=== PATIENT | female | born 1945 | race Caucasian/White ===

== ENCOUNTER 2016-11-17 12:25 | Emergency (ER) | payer MEDICARE, BC ==
[2016-11-17] MEDS ORDERED: Bacitracin Oint 1 GM U/D Packet TOP ONE (13:22)
[2016-11-17 13:26] VITALS: BP 185/95
--- NOTE | 2016-11-17 14:02 | EDM.PDOC ---
[id number] 4d R INDEX FINGER LACERATION Time Seen by Provider: 11/17/16 13:30 Source of Information: Reports: Patient History Limitations: Reports: No Limitations - History of Present Illness INITIAL COMMENTS - FREE TEXT/NARRATIVE: 71-year-old female cut her right index finger while cutting a watermelon. She has a flap laceration on the pulp of the index finger, a total of 2.5 cm. Onset: Sudden Duration: Hour(s): (Within the last hour) Location: Reports: Upper Extremity, Right - Related Data Allergies Allergy/AdvReac Type Severity Reaction Status Date / Time erythromycin base AdvReac Other Verified 11/17/16 13:20 Home Meds: Home Meds Atenolol [Atenolol] 1 tab PO DAILY 03/26/15 [History] Diazepam [Diazepam] 1 tab PO ASDIRECTED 03/26/15 [History] Omeprazole [Omeprazole] 1 tab PO DAILY 03/26/15 [History] PARoxetine HCl [Paroxetine HCl] 1 tab PO DAILY 03/26/15 [History] Sulindac [Clinoril] 1 tab PO BID 03/26/15 [History] metFORMIN [Glucophage] 1 tab PO ACBREAKFAST 03/26/15 [History] Escitalopram [Lexapro] 20 mg PO DAILY 11/17/16 [History] metFORMIN [Glucophage] 1,000 mg PO BEDTIME 11/17/16 [History] Past Medical History Cardiovascular History: Reports: Hypertension 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: Musculoskeletal History: Reports: Arthritis Psychiatric History: Reports: Anxiety Endocrine/Metabolic History: Reports: Diabetes, Type II Oncologic (Cancer) History: Reports: Other (See Below) Other Oncologic History: endometrial ca - Past Surgical History GI Surgical History: Reports: Other (See Below) Female Surgical History: Reports: Hysterectomy Social & Family History - Tobacco Use Smoking Status *Q: Never Smoker Second Hand Smoke Exposure: No - Caffeine Use Caffeine Use: Reports: Coffee - Recreational Drug Use Recreational Drug Use: No ED ROS GENERAL - Review of Systems Review Of Systems: See Below Constitutional: Denies: Fever Cardiovascular: Denies: Chest Pain GI/Abdominal: Denies: Abdominal Pain, Nausea, Vomiting Psychiatric: Reports: Anxiety ED EXAM, SKIN/RASH Exam: See Below Exam Limited By: No Limitations General Appearance: Alert, No Apparent Distress Respiratory/Chest: No Respiratory Distress Extremities: Other (exam is otherwise limited to the right hand. Patient has a 2.5 cm flap laceration to the pulp.) Course - Vital Signs Last Recorded V/S: Last Vital Signs Temp 97.8 F 11/17/16 13:24 Pulse 65 11/17/16 13:24 Resp 23 H 11/17/16 13:24 BP 185/95 H 11/17/16 13:24 Pulse Ox 96 11/17/16 13:24 - Orders/Labs/Meds Orders: Active Orders 24 hr Category Date Time Status Vaccines to be Administered [RC] PER UNIT ROUTINE Care 11/17/16 14:04 Active Meds: Medications Discontinued Medications Generic Name Dose Route Start Last Admin Trade Name Freq PRN Reason Stop Dose Admin Bacitracin 1 dose 11/17/16 13:22 11/17/16 14:19 Bacitracin Oint 1 Gm TOP 11/17/16 13:23 1 dose ONETIME ONE Administration Diphtheria/Tetanus/Acell Pertussis 0.5 ml 11/17/16 14:04 11/17/16 14:16 Adacel IM 11/17/16 14:05 0.5 ml .ONCE ONE Administration Lidocaine HCl 5 ml 11/17/16 13:22 11/17/16 14:19 Xylocaine-Mpf 1% INJECT 11/17/16 13:23 5 ml ONETIME ONE Administration - Re-Assessments/Exams Free Text/Narrative Re-Assessment/Exam: 11/17/16 14:00 The wound is cleaned with saline, infiltrated with 1% lidocaine and 7 5-0 Ethilon sutures were used to close the wound. Topical bacitracin and a Band-Aid was applied, the patient was given a finger splint for protection. She she was also given a TDap. Departure - Departure Time of Disposition: 14:52 Disposition: Home, Self-Care 01 Condition: Good Clinical Impression: Finger laceration Qualifiers: Encounter type: initial encounter Finger: index finger Damage to nail status: without damage Foreign body presence: without foreign body Laterality: right Qualified Code(s): S61.210A - Laceration without foreign body of right index finger without damage to nail, initial encounter - Discharge Information Instructions: Laceration Care, Adult, [id number] Referrals: Karen Lombardo MD [Primary Care Provider] - Forms: ED Department Discharge Care Plan Goals: Keep the wound covered and clean while healing. Sutures can be removed in 8 days. Recheck sooner if concerns of infection or not healing satisfactorily. - My Orders Last 24 Hours: My Active Orders 11/17/16 14:04 Vaccines to be Administered [RC] PER UNIT ROUTINE - Assessment/Plan Last 24 Hours: My Active Orders 11/17/16 14:04 Vaccines to be Administered [RC] PER UNIT ROUTINE
[2016-11-17] MEDS ORDERED: Diphtheria,Pertussis(Acell),Tetanus Vaccine 0.5 ML SDV IM ONE (14:04)
== END 2016-11-17 14:53 | disposition home or self-care (01) ==
LOC: JP.ED 12:25
DX: S61.210A Laceration without foreign body of right index finger without damage to nail, initial encounter (principal); I10 Essential (primary) hypertension; M19.90 Unspecified osteoarthritis, unspecified site; F41.9 Anxiety disorder, unspecified; E11.9 Type 2 diabetes mellitus without complications; Z23 Encounter for immunization; Z90.710 Acquired absence of both cervix and uterus; Z85.42 Personal history of malignant neoplasm of other parts of uterus; Z79.84 Long term (current) use of oral hypoglycemic drugs; Z79.899 Other long term (current) drug therapy; Z88.1 Allergy status to other antibiotic agents; W45.8XXA Other foreign body or object entering through skin, initial encounter
CPT/HCPCS: 12001; 90471; 90715; 99283-25; 99284-25

== ENCOUNTER 2017-02-23 09:22 | Emergency (ER) | payer MEDICARE, BC ==
[2017-02-23] MEDS ORDERED: LORazepam 2 MG/ML MDV IVPUSH ONE ×2 (10:51→12:57)
--- NOTE | 2017-02-23 10:55 | EDM.PDOC ---
ED HPI GENERAL MEDICAL PROBLEM - General Chief Complaint: Back Pain or Injury Stated Complaint: MEDICAL VIA [facility] Time Seen by Provider: 02/23/17 10:40 Source of Information: Reports: Patient, Family, Old Records, RN Notes Reviewed History Limitations: Reports: No Limitations - History of Present Illness INITIAL COMMENTS - FREE TEXT/NARRATIVE: 72-year-old female presents emergency department today via EMS services following a fall at home, she states she went to sit on a chair missed the chair fell ended up hitting a table where she landed on the right flank area. She states the pain was very intense difficulty breathing with this after the event she had a syncopal event she did not collapse as she was already on the ground. She is complaining of right flank pain no other symptoms at this time she is quite anxious Treatments JANITORIAL ASSISTANT: Reports: IV/IO, Other (see below) Other Treatments JANITORIAL ASSISTANT: Zofran 8 mg po Fentenyl 100mcg Right Flank Pain Score (Numeric/FACES): 3 - Related Data Allergies Allergy/AdvReac Type Severity Reaction Status Date / Time erythromycin base AdvReac Other Verified 02/23/17 09:41 Home Meds: Home Meds Atenolol [Atenolol] 1 tab PO DAILY 03/26/15 [History] Diazepam [Diazepam] 1 tab PO ASDIRECTED 03/26/15 [History] Omeprazole [Omeprazole] 1 tab PO DAILY 03/26/15 [History] Sulindac [Clinoril] 1 tab PO BID 03/26/15 [History] metFORMIN [Glucophage] 1 tab PO ACBREAKFAST 03/26/15 [History] Escitalopram [Lexapro] 20 mg PO DAILY 11/17/16 [History] metFORMIN [Glucophage] 1,000 mg PO BEDTIME 11/17/16 [History] Cholecalciferol (Vitamin D3) [Vitamin D3] 2,000 unit PO DAILY 02/23/17 [History] Escitalopram Oxalate [Lexapro] 20 mg PO DAILY 02/23/17 [History] Past Medical History HEENT History: Reports: Impaired Vision Cardiovascular History: Reports: Hypertension Gastrointestinal History: Reports: Chronic Constipation 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: , 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 Musculoskeletal History: Reports: Arthritis, Osteoarthritis Psychiatric History: Reports: Anxiety Endocrine/Metabolic History: Reports: Diabetes, Type II Oncologic (Cancer) History: Reports: Other (See Below) Other Oncologic History: endometrial ca - Infectious Disease History Infectious Disease History: Reports: Chicken Pox, Measles, Mumps - Past Surgical History HEENT Surgical History: Reports: Cataract Surgery GI Surgical History: Reports: Other (See Below) Other GI Surgeries/Procedures: abdomenal abcess 2010 Female Surgical History: Reports: Hysterectomy Social & Family History - Tobacco Use Smoking Status *Q: Never Smoker Second Hand Smoke Exposure: No - Caffeine Use Caffeine Use: Reports: Coffee - Recreational Drug Use Recreational Drug Use: No ED ROS GENERAL - Review of Systems Review Of Systems: See Below Constitutional: Reports: No Symptoms HEENT: Reports: No Symptoms Respiratory: Reports: Shortness of Breath Cardiovascular: Reports: Chest Pain GI/Abdominal: Reports: No Symptoms : Reports: No Symptoms Musculoskeletal: Reports: Back Pain Skin: Reports: No Symptoms Neurological: Reports: No Symptoms ED EXAM, UPPER BACK/NECK PAIN - Physical Exam Exam: See Below Exam Limited By: No Limitations General Appearance: Alert, Mild Distress Cardiovascular/Respiratory: Regular Rate, Rhythm, No M/R/G, Normal Breath Sounds , No Respiratory Distress GI/Abdominal: Soft, Tender (Tender right area flank over T10 region) Back Exam: Normal Inspection, Decreased Range of Motion. No: CVA Tenderness (R) , CVA Tenderness (L), Paraspinal Tenderness, Vertebral Tenderness Course - Vital Signs Last Recorded V/S: Last Vital Signs Temp 97.5 F 02/23/17 09:40 Pulse 75 02/23/17 13:51 Resp 16 02/23/17 13:51 BP 116/54 L 02/23/17 13:51 Pulse Ox 90 L 02/23/17 13:51 - Orders/Labs/Meds Orders: Active Orders 24 hr Category Date Time Status Cardiac Monitoring [RC] .As Directed Care 02/23/17 10:50 Active EKG Documentation Completion [RC] ASDIRECTED Care 02/23/17 09:47 Active Iopamidol [Isovue-370 (76%)] Med 02/23/17 13:00 Active 100 ml IV . DIRECTED Sodium Chloride 0.9% [Normal Saline] 100 ml Med 02/23/17 13:00 Active IV ASDIRECTED Sodium Chloride 0.9% [Saline Flush] Med 02/23/17 13:00 Active 10 ml FLUSH ONETIME EKG 12 Lead [EK] Stat Ther 02/23/17 09:47 Ordered Medication Orders Sodium Chloride (Normal Saline) 100 mls @ 4 mls/sec IV ASDIRECTED BORIS Stop: 02/23/17 23:00 Last Admin: 02/23/17 13:34 Dose: 4 mls/sec Iopamidol (Isovue-370 (76%)) 100 ml IV . DIRECTED BORIS Stop: 02/23/17 23:00 Last Admin: 02/23/17 13:34 Dose: 100 ml Sodium Chloride (Saline Flush) 10 ml FLUSH ONETIME BORIS Stop: 02/23/17 23:00 Labs: Laboratory Tests 02/23/17 02/23/17 02/23/17 Range/Units 11:00 11:00 11:00 WBC 9.1 (4.5-11.0) K/uL RBC 5.00 (3.30-5.50) M/uL Hgb 14.1 (12.0-15.0) g/dL Hct 43.3 (36.0-48.0) % MCV 87 (80-98) fL MCH 28 (27-31) pg MCHC 33 (32-36) % Plt Count 175 (150-400) K/uL Neut % (Auto) 71 H (36-66) % Lymph % (Auto) 11 L (24-44) % [place] % (Auto) 12 H (2-6) % Eos % (Auto) 5 H (2-4) % Baso % (Auto) 0 (0-1) % D-Dimer, Quantitative 1400 H (0.0-400.0) ng/mL Sodium 140 (140-148) mmol/L Potassium 4.5 (3.6-5.2) mmol/L Chloride 104 (100-108) mmol/L Carbon Dioxide 28 (21-32) mmol/L Anion Gap 8.0 (5.0-14.0) mmol/L BUN 30 H (7-18) mg/dL Creatinine 0.6 (0.6-1.0) mg/dL Est Cr Clr Drug Dosing 77.01 mL/min Estimated GFR (MDRD) > 60 (>60) Glucose 146 H (74-106) mg/dL Calcium 9.1 (8.5-10.1) mg/dL Total Bilirubin 0.5 (0.2-1.0) mg/dL AST 9 L (15-37) U/L ALT 15 (12-78) U/L Alkaline Phosphatase 61 (46-116) U/L CK-MB (CK-2) 0.5 (0-3.6) mg/mL Troponin I < 0.017 (0.000-0.056) ng/mL Total Protein 6.8 (6.4-8.2) g/dL Albumin 3.5 (3.4-5.0) g/dL Globulin 3.3 (2.3-3.5) g/dL Albumin/Globulin Ratio 1.1 L (1.2-2.2) Urine Color Urine Appearance Urine pH (4.5-8.0) Ur Specific [place] (1.008-1.030) Urine Protein (NEGATIVE) mg/dL Urine Glucose (UA) (NEGATIVE) mg/dL Urine Ketones (NEGATIVE) mg/dL Urine Occult Blood (NEGATIVE) Urine Nitrite (NEGATIVE) Urine Bilirubin (NEGATIVE) Urine Urobilinogen (NORMAL) mg/dL Ur Leukocyte Esterase (NEGATIVE) Urine RBC (0-5) Urine WBC (0-5) Ur Epithelial Cells Amorphous Sediment Urine Bacteria Urine Mucus 02/23/17 Range/Units 12:56 WBC (4.5-11.0) K/uL RBC (3.30-5.50) M/uL Hgb (12.0-15.0) g/dL Hct (36.0-48.0) % MCV (80-98) fL MCH (27-31) pg MCHC (32-36) % Plt Count (150-400) K/uL Neut % (Auto) (36-66) % Lymph % (Auto) (24-44) % [place] % (Auto) (2-6) % Eos % (Auto) (2-4) % Baso % (Auto) (0-1) % D-Dimer, Quantitative (0.0-400.0) ng/mL Sodium (140-148) mmol/L Potassium (3.6-5.2) mmol/L Chloride (100-108) mmol/L Carbon Dioxide (21-32) mmol/L Anion Gap (5.0-14.0) mmol/L BUN (7-18) mg/dL Creatinine (0.6-1.0) mg/dL Est Cr Clr Drug Dosing mL/min Estimated GFR (MDRD) (>60) Glucose (74-106) mg/dL Calcium (8.5-10.1) mg/dL Total Bilirubin (0.2-1.0) mg/dL AST (15-37) U/L ALT (12-78) U/L Alkaline Phosphatase (46-116) U/L CK-MB (CK-2) (0-3.6) mg/mL Troponin I (0.000-0.056) ng/mL Total Protein (6.4-8.2) g/dL Albumin (3.4-5.0) g/dL Globulin (2.3-3.5) g/dL Albumin/Globulin Ratio (1.2-2.2) Urine Color Yellow Urine Appearance Cloudy Urine pH 5.0 (4.5-8.0) Ur Specific [place] 1.020 (1.008-1.030) Urine Protein Negative (NEGATIVE) mg/dL Urine Glucose (UA) Normal (NEGATIVE) mg/dL Urine Ketones Negative (NEGATIVE) mg/dL Urine Occult Blood Large (NEGATIVE) Urine Nitrite Negative (NEGATIVE) Urine Bilirubin Negative (NEGATIVE) Urine Urobilinogen Normal (NORMAL) mg/dL Ur Leukocyte Esterase Negative (NEGATIVE) Urine RBC 50-75 H (0-5) Urine WBC 0-5 (0-5) Ur Epithelial Cells Few Amorphous Sediment Not seen Urine Bacteria Not seen Urine Mucus Moderate Meds: Medications Generic Name Dose Route Start Last Admin Trade Name Freq PRN Reason Stop Dose Admin Sodium Chloride 100 mls @ 4 mls/sec 02/23/17 13:00 02/23/17 13:34 Normal Saline IV 02/23/17 23:00 4 mls/sec ASDIRECTED BORIS Administration Iopamidol 100 ml 02/23/17 13:00 02/23/17 13:34 Isovue-370 (76%) IV 02/23/17 23:00 100 ml . DIRECTED BORIS Administration Sodium Chloride 10 ml 02/23/17 13:00 Saline Flush FLUSH 02/23/17 23:00 ONETIME BORIS Discontinued Medications Generic Name Dose Route Start Last Admin Trade Name Freq PRN Reason Stop Dose Admin Ketorolac Tromethamine 30 mg 02/23/17 13:05 02/23/17 13:15 Toradol IVPUSH 02/23/17 13:06 30 mg ONETIME ONE Administration Lorazepam 1 mg 02/23/17 10:51 02/23/17 11:04 Ativan IVPUSH 02/23/17 10:52 1 mg ONETIME ONE Administration Lorazepam 1 mg 02/23/17 12:57 02/23/17 13:09 Ativan IVPUSH 02/23/17 12:58 1 mg ONETIME ONE Administration Departure - Departure Time of Disposition: 14:22 Disposition: Home, Self-Care 01 Condition: Good Clinical Impression: Rib pain on right side Syncope Qualifiers: Syncope type: vasovagal syncope Qualified Code(s): R55 - Syncope and collapse - Discharge Information Referrals: Karen Lombardo MD [Primary Care Provider] - Forms: ED Department Discharge Additional Instructions: Use hydrocodone as needed for pain control, Please followup with your primary care provider in 3-5 days if not better, please call return to the emergency department with worsening of symptoms. - My Orders Last 24 Hours: My Active Orders 02/23/17 09:47 EKG Documentation Completion [RC] ASDIRECTED EKG 12 Lead [EK] Stat 02/23/17 10:50 Cardiac Monitoring [RC] .As Directed 02/23/17 13:00 Iopamidol [Isovue-370 (76%)] 100 ml IV . DIRECTED Sodium Chloride 0.9% [Normal Saline] 100 ml IV ASDIRECTED Sodium Chloride 0.9% [Saline Flush] 10 ml FLUSH ONETIME - Assessment/Plan Last 24 Hours: My Active Orders 02/23/17 09:47 EKG Documentation Completion [RC] ASDIRECTED EKG 12 Lead [EK] Stat 02/23/17 10:50 Cardiac Monitoring [RC] .As Directed 02/23/17 13:00 Iopamidol [Isovue-370 (76%)] 100 ml IV . DIRECTED Sodium Chloride 0.9% [Normal Saline] 100 ml IV ASDIRECTED Sodium Chloride 0.9% [Saline Flush] 10 ml FLUSH ONETIME Plan: Assessment Acuity = acute Site and laterality = syncopal event with right-sided rib pain Etiology = secondary to fall at home Manifestations = none Location of injury = Home Lab values = WBC unremarkable d-dimer elevated at 1400 by unclear etiology troponin was negative CK-MB negative CMP negative urinalysis reveals 50-75 rbc' s consistent hematuria, chest x-ray shows no acute process CT scan of the chest does show a 9 mm nodule in the lingula otherwise no acute process no fractures noted, EKG demonstrates a left bundle branch block and sinus rhythm unknown etiology or duration Plan I did review lab work CT scan results with her discharged home with hydrocodone 5/325 one tab by mouth 3 times a day when necessary total #10 follow-up with primary care in 3-5 days for reevaluation recommend follow-up CT scan for lung nodule Patient was in agreement with the plan all questions were answered, they were instructed to return to the emergency department or call for worsening symptoms. This note was dictated using [employer] voice recognition software please call with any questions.
--- NOTE | 2017-02-23 12:35 | CR ---
Chest 2V INDICATION: Chest Pain FINDINGS: Elevation right hemidiaphragm. Mild atelectasis in the right lung base. Mild hypertrophic c hanges thoracic spine. Chest otherwise negative.
[2017-02-23] MEDS ORDERED: Iopamidol 755 Mg/ML 100 ML Bottle IV SCH (13:00)
[2017-02-23] MEDS ORDERED: Sodium Chloride 0.9% 100 ML IV SCH (13:00)
[2017-02-23] MEDS ORDERED: Sodium Chloride 0.9% 10 ML Syringe FLUSH SCH (13:00)
[2017-02-23] MEDS ORDERED: Ketorolac 30 MG/ML SDV IVPUSH ONE (13:05)
[2017-02-23 13:51] VITALS: BP 116/54
--- NOTE | 2017-02-23 13:59 | CT ---
Ang Chest Total DLP 528 mGycm. INDICATION: syncope, elevated d-dimer COMPARISON: None. FINDINGS: No acute pulmonary artery embolism. Mild infiltrate or atelectasis in the lung bases, great er on the right. Groundglass infiltrate in both lower lobes, greater in the right upper lobe. 9 mm in determinate pulmonary nodule in the lingula on series 5 image 86. Benign calcified splenic granulomat a. Hypertrophic changes thoracic spine. Chest otherwise negative. IMPRESSION: 1. No acute pulmonary artery wasn't. 2. 9 mm indeterminate pulmonary nodule in the lingula. Follow-up PET/CT recommended. 3. Nonspecific groundglass infiltrates in both lungs. Findings discussed with Officer by telephone at 1:55 PM on 02/23/2017.
== END 2017-02-23 15:07 | disposition home or self-care (01) ==
LOC: JP.ED 09:22
DX: R07.81 Pleurodynia (principal); R55 Syncope and collapse; I10 Essential (primary) hypertension; E11.9 Type 2 diabetes mellitus without complications; F41.9 Anxiety disorder, unspecified; Z79.84 Long term (current) use of oral hypoglycemic drugs; Z79.899 Other long term (current) drug therapy; Z88.1 Allergy status to other antibiotic agents
CPT/HCPCS: 36415; 71020; 71275; 80053; 81001; 82553; 84484; 85025; 85379; 93005; 96374; 96375; 96376; 99285; J1885; J2060; J7030; Q9967; 93010; 99283

== ENCOUNTER 2022-04-14 10:27 | Emergency (ER) | payer MEDICARE, BC ==
[2022-04-14 10:34] VITALS: BP 180/75; PULSE 64
[2022-04-14] MEDS ORDERED: Ondansetron 4 MG/2 ML SDV IVPUSH ONE (10:46)
[2022-04-14] MEDS ORDERED: HYDROmorphone 1 MG/ML Syringe IVPUSH ONE (11:16)
== END 2022-04-14 12:43 | disposition home or self-care (01) ==
LOC: JP.ED 10:27
DX: S42.212A Unspecified displaced fracture of surgical neck of left humerus, initial encounter for closed fracture (principal); I10 Essential (primary) hypertension; E11.9 Type 2 diabetes mellitus without complications; Z88.1 Allergy status to other antibiotic agents; Z79.899 Other long term (current) drug therapy; W01.0XXA Fall on same level from slipping, tripping and stumbling without subsequent striking against object, initial encounter
CPT/HCPCS: 73020; 96374; 96375; 99283; J1170; J2405

== ENCOUNTER 2022-04-26 19:55 | Emergency (ER) | payer MEDICARE, BC ==
[2022-04-26 20:23] VITALS: BP 155/71; PULSE 79
== END 2022-04-26 21:28 | disposition home or self-care (01) ==
LOC: JP.ED 19:55
DX: R60.0 Localized edema (principal); I10 Essential (primary) hypertension; E11.9 Type 2 diabetes mellitus without complications; Z79.899 Other long term (current) drug therapy; Z86.16 Personal history of COVID-19
CPT/HCPCS: 99282; 99283

== ENCOUNTER 2024-03-05 13:55 | Emergency (ER) | payer MEDICARE, BC ==
[2024-03-05] MEDS ORDERED: Sodium Chloride 0.9% 10 ML Syringe FLUSH PRN (14:12)
[2024-03-05] MEDS: HYDROmorphone 0.5 MG/0.5 ML Syringe IVPUSH ONE (14:35)
[2024-03-05] MEDS: Diphtheria,Pertussis(Acell),Tetanus Vaccine 0.5 ML Syringe IM ONE (14:37)
[2024-03-05] MEDS: Ondansetron 4 MG Tab.DIS PO ONE (15:30)
[2024-03-05] MEDS: Lidocaine 1% with EPINEPHrine 1:100,000 20 ML MDV INJECT ONE (16:22)
[2024-03-05 16:26] VITALS: BP 143/71; PULSE 83
== END 2024-03-05 17:26 | disposition home or self-care (01) ==
LOC: JP.ED 13:55
DX: S01.01XA Laceration without foreign body of scalp, initial encounter (principal); S29.012A Strain of muscle and tendon of back wall of thorax, initial encounter; Z23 Encounter for immunization; I10 Essential (primary) hypertension; E11.9 Type 2 diabetes mellitus without complications; Z79.84 Long term (current) use of oral hypoglycemic drugs; Z79.899 Other long term (current) drug therapy; Z86.16 Personal history of COVID-19; Z90.710 Acquired absence of both cervix and uterus; W19.XXXA Unspecified fall, initial encounter
CPT/HCPCS: 12002; 70450; 72125; 72128; 72131; 76377; 90471; 90715; 96374; 99284; J1171; Q0162; 99283